=== PATIENT | male | born 1960 | race Asian ===

== ENCOUNTER 2017-04-21 07:09 | Emergency (ER) | payer SELFPAY ==
[~2017-04-21] VITALS: Ht 160 cm; Wt 70.0 kg
[2017-04-21 08:38] LABS: BASOPHILS % 0.4 % (0.0-2.0); EOSINOPHILS % 0.3 % (0.0-5.0); HEMATOCRIT. 42.6 % (42.0-52.0); HEMOGLOBIN. 14.8 g/dL (14.0-18.0); MEAN CORPUSCULAR HEMOGLOBIN 32.3 pg (28.0-32.0); MEAN PLATELET VOLUME 8.7 fl (7.4-10.4); MONOCYTES % 8.7 % (2.0-8.0); NEUTROPHILS % 75.6 % (40.0-76.0); PLATELET 217 x1000/uL (130-400); RED BLOOD CELL COUNT 4.57 mill/uL (4.7-6.1)
[2017-04-21 08:44] LABS: CHLORIDE 106 mEq/L (98-107)
[2017-04-21 08:54] LABS: CARBON DIOXIDE 21 mEq/L (21-32); ETHANOL BLOOD < 10 mg/dL; TROPONIN I < 0.02 ng/mL (0.00-0.04)
[2017-04-21 08:58] LABS: T4 FREE 1.03 ng/dL (0.76-1.46)
[2017-04-21 09:11] LABS: *AMPHETAMINES SCREEN URINE NEGATIVE (NEGATIVE); *BARBITURATES SCREEN URINE NEGATIVE (NEGATIVE); *BENZODIAZEPINES SCREEN URINE NEGATIVE (NEGATIVE); *COCAINE SCREEN URINE NEGATIVE (NEGATIVE); CANNABINOID URINE SCREEN NEGATIVE (NEGATIVE); METHADONE URINE SCREEN NEGATIVE (NEGATIVE); OPIATES URINE SCREEN NEGATIVE (NEGATIVE); PHENCYCLIDINE URINE SCREEN NEGATIVE (NEGATIVE)
[2017-04-21] MEDS ORDERED: ADENOSINE 3 MG/ML 2ML VIAL IV ONE (09:53)
[2017-04-21] MEDS ORDERED: ADENOSINE 6 MG/2ML SYRINGE IV ONE (10:00)
[2017-04-21] MEDS ORDERED: DILTIAZEM HCL 30MG TABLET PO ONE (12:15)
[2017-04-21 13:28] VITALS: BP 125/83
== END 2017-04-21 14:07 | disposition home or self-care (01) ==
LOC: ER 07:09
DX: I47.1 Supraventricular tachycardia (principal); R03.0 Elevated blood-pressure reading, without diagnosis of hypertension; E11.9 Type 2 diabetes mellitus without complications; Z88.6 Allergy status to analgesic agent
CPT/HCPCS: 36415; 80053; 80305; 80307; 80329; 84439; 84443; 84481; 84484; 85025; 85730; 93005; 96374; 99285; G0482; Z7610; J0153